=== PATIENT | female | born 1970 | race Caucasian/White ===

== ENCOUNTER → 2017-01-25 | Outpatient (CLI) | payer BC ==
--- NOTE | 2017-01-25 13:31 | RAD ---
APPROVED REPORT Test Type: Exercise Stress Nurse/Tech: Kika Ceja R.N. Test Indications: chest pain Cardiac History: none Medications: none Medical History: none Resting ECG: sr Resting Heart Rate: 74 bpm Resting Blood Pressure: 118/74mmHg Pretest Chest Pain: No chest pain Nurse/Tech Notes lungs cta, heart tones regular, good radial pulse Consent: The procedure was explained to the patient in lay terms. Informed consent was witnessed. Aashish eout was entered into [facility]. History and Stress Test performed by RT Alida (R) (N) Stress Symptoms No chest pain or symptoms. POST EXERCISE Reason for Termination: Reached target heart rate Target HR: Yes Max HR: 152 bpm 87% of Maximum Predicted HR: 174 bpm Exercise duration: 10:22 min:sec, 4 Stage Exercise capacity: 13.4METs Max Blood Pressure: 145/75mmHg Blood Pressure response to exercise: Normal blood pressure response during stress. Heart Rate response to exercise: normal Chest Pain: No. Arrhythmia: No. ST Change: No. INTERPRETATION Stress EKG Conclusion: Baseline EKG showed sinus rhythm. No ischemic changes at peak stress. No arr hythmias. Conclusion 1. Treadmill exercise stress electrocardiogram did not show any diagnostic evidence of ischemia.
== END | disposition home or self-care (01) ==
LOC: NM 13:34
PROVIDERS: ATTEND Nurse Practitioner Family
DX: R07.9 Chest pain, unspecified (principal)
CPT/HCPCS: 93017

== ENCOUNTER → 2018-02-15 | Outpatient (CLI) | payer OTHER ==
--- NOTE | 2018-02-15 17:14 | RAD ---
PELVIS COMPLETE History: menorrhagia Comparison: None. Findings: Multiple transabdominal sonographic images of pelvis are submitted. Uterus measured 10.6 x 6.1 x 5 cm. There is a mass of the left posterior uterus in the myometrium about 3.5 x 2.8 x 2.7 cm although apparently abutting the endometrium. Endometrial thickness is on the order of 1 cm. Left ovary measured 1.9 x 2.9 x 1.6 cm with normal low resistance vascularity color flow. Right ovary measured 1.4 x 1.4 x 3 cm with normal low resistance vascularity. No free fluid is demonstrated. Impression: 1. There is a uterine mass on the left posteriorly in the myometrium abutting the endometrium, likely fibroid. Electronically signed by: Lexa Doan MD (02/15/2018 5:11 PM) [email or web address]
== END | disposition home or self-care (01) ==
LOC: US 16:31
PROVIDERS: ATTEND Nurse Practitioner Family
DX: N85.8 Other specified noninflammatory disorders of uterus (principal)
CPT/HCPCS: 76856